=== PATIENT | male | born 1950 ===

== ENCOUNTER → 2023-05-12 08:32 | Outpatient (CLI) | payer MEDICARE, SELFPAY ==
--- NOTE | ~2023-05-12 | MR_ITS ---
MRI of the cervical spine Clinical History: Cervicalgia Technique: Axial T2-weighted and gradient images, and sagittal T1-weighted, T2-weighted, and STIR mabel ges were acquired. Findings: No fracture identified. There is minimal grade 1 anterolisthesis of C4 over C5. No suspicio us bone marrow signal abnormality seen. At C2-C3, there is no disc bulge or herniation. No spinal canal stenosis, cord compression, or right neural foraminal narrowing. Possible minimal left neural foraminal narrowing with minimal facet arthr opathy. At C3-C4, there is minimal disc osteophyte complex, without central canal stenosis or cord compressio n. There is bilateral facet arthropathy, left worse than right, bilateral neural foraminal narrowing, left worse than right. At C4-C5, there is disc osteophyte, which results in mild canal stenosis but no miriam cord compressio n. There is bilateral neural foraminal narrowing with bilateral facet arthropathy, right worse than l eft. At C5-C6, there is minimal disc osteophyte complex. No canal stenosis, cord compression, or neural fo raminal narrowing. At C6-C7, there is minimal disc osteophyte complex. No central canal stenosis, cord compression, or n eural foraminal narrowing. No abnormal signal seen in the spinal cord. Paravertebral soft tissues are unremarkable. Impression: Minimal grade 1 anterolisthesis of C4 over C5. [id number] degenerative spondylosis at C4-C5 and C3-C4. Reviewed, dictated and finalized at [facility]. [employer] Impression: Minimal grade 1 anterolisthesis of C4 over C5. [id number] degenerative spondylosis at C4-C5 and C3-C4.
== END ==
PROVIDERS: PCP Physician Assistant; Visit Provider Physician Assistant
DX: M47.892 Other spondylosis, cervical region (principal)
CPT/HCPCS: 72141